=== PATIENT | female | born 1965 | race Caucasian/White ===

== ENCOUNTER 2023-05-05 09:35 | Day surgery (SDC) | payer OTHER ==
[2023-05-05] MEDS ORDERED: LIDOCAINE HCL 2% 100 MG/5 ML IJ ONE (09:36)
[2023-05-05] MEDS ORDERED: DIPRIVAN 200 MG/20 ML IV ONE (11:48)
--- NOTE | 2023-05-05 12:33 | XRAY ---
Indication: Bilateral L4-S1 MBB. Intraoperative fluoroscopy provided for 10 seconds. Single digital spot image submitted for interpretation demonstrates posterior needle tips projecting over expected left and right L4-S1 nerve roots. Correlate with intraoperative findings/report.
--- NOTE | 2023-05-05 13:23 | XRAY ---
10 seconds of fluoroscopy was used in surgery for a bilateral L4-S1 MBB.
[2023-05-05] MEDS ORDERED: Lactated Ringers 1,000 ML IV ONE (13:41)
== END 2023-05-05 12:20 | disposition home or self-care (01) ==
LOC: SDC-PAIN 09:35
PROVIDERS: ATTEND Psychiatry & Neurology Pain Medicine
DX: M47.816 Spondylosis without myelopathy or radiculopathy, lumbar region (principal); E11.9 Type 2 diabetes mellitus without complications
CPT/HCPCS: 64493; 64494; 72020; 77002; 82947; J2704

== ENCOUNTER 2023-06-09 07:20 | Day surgery (SDC) | payer OTHER ==
[2023-06-09] MEDS ORDERED: BUPIVACAINE 0.5% VIAL IJ ONE (07:21)
[2023-06-09] MEDS ORDERED: DIPRIVAN 200 MG/20 ML IV ONE (09:34)
--- NOTE | 2023-06-09 10:41 | XRAY ---
Indication: Bilateral L4-S1 MBB. Intraoperative fluoroscopy provided for 12 seconds. Single digital spot image submitted for interpretation demonstrates posterior needle tips projecting over expected left and right L4-S1 nerve roots. Correlate with intraoperative findings/report.
[2023-06-09] MEDS ORDERED: Lactated Ringers 1,000 ML IV ONE (11:27)
--- NOTE | 2023-06-10 13:54 | XRAY ---
12 seconds of fluoroscopy was used in surgery for a bilateral L4-S1 MBB.
== END 2023-06-09 10:02 | disposition home or self-care (01) ==
LOC: SDC-PAIN 07:20
PROVIDERS: ATTEND Psychiatry & Neurology Pain Medicine
DX: M47.816 Spondylosis without myelopathy or radiculopathy, lumbar region (principal); E11.9 Type 2 diabetes mellitus without complications
CPT/HCPCS: 64493; 64494; 72020; 77002; 82947; J2704

== ENCOUNTER 2023-07-14 07:21 | Day surgery (SDC) | payer OTHER ==
[2023-07-14] MEDS ORDERED: BUPIVACAINE 0.5% VIAL IJ ONE (07:22)
[2023-07-14] MEDS ORDERED: LIDOCAINE HCL 1% 50 MG/5 ML VL PF IJ ONE (07:22)
[2023-07-14] MEDS ORDERED: Depo-Medrol 40 MG/ML IM ONE (07:22)
[2023-07-14] MEDS ORDERED: DIPRIVAN 200 MG/20 ML IV ONE (08:59)
--- NOTE | 2023-07-14 10:59 | XRAY ---
Indication: Left L4-S1 RFA. Intraoperative fluoroscopy provided for 38 seconds. 3 digital spot image submitted for interpretation demonstrates posterior needle tips projecting over the expected left L4-S1 nerve roots. Correlate with intraoperative findings/report.
--- NOTE | 2023-07-14 11:28 | XRAY ---
38 seconds of fluoroscopy was used in surgery for a left L4-S1 RFA.
[2023-07-14] MEDS ORDERED: Lactated Ringers 1,000 ML IV ONE (11:46)
== END 2023-07-14 09:35 | disposition home or self-care (01) ==
LOC: SDC-PAIN 07:21
PROVIDERS: ATTEND Psychiatry & Neurology Pain Medicine
DX: M47.817 Spondylosis without myelopathy or radiculopathy, lumbosacral region (principal); E11.9 Type 2 diabetes mellitus without complications
CPT/HCPCS: 64635; 64636; 72100; 77002; 82947; J1010; J2001; J2704

== ENCOUNTER 2023-10-06 07:23 | Day surgery (SDC) | payer OTHER ==
[2023-10-06] MEDS ORDERED: BUPIVACAINE 0.5% VIAL IJ ONE (07:24)
[2023-10-06] MEDS ORDERED: Depo-Medrol 40 MG/ML IM ONE (07:24)
[2023-10-06] MEDS ORDERED: DIPRIVAN 200 MG/20 ML IV ONE (08:28)
[2023-10-06] MEDS ORDERED: Lactated Ringers 1,000 ML IV ONE (09:30)
--- NOTE | 2023-10-06 10:30 | XRAY ---
Indication: Bilateral hip and bilateral greater trochanter bursa injection. Intraoperative fluoroscopy was provided for 43 seconds. 4 digital spot image submitted for interpretation demonstrates needle tip projecting lateral to left/right femur necks and left/right greater trochanters. Small amount of contrast injected for needle tip placement. Correlate with intraoperative findings/report.
--- NOTE | 2023-10-06 12:27 | XRAY ---
43 seconds of fluoroscopy was used in surgery for bilateral greater trochanteric bursa and intra-articular injections of the hips.
== END 2023-10-06 09:05 | disposition home or self-care (01) ==
LOC: SDC-PAIN 07:23
PROVIDERS: ATTEND Psychiatry & Neurology Pain Medicine
DX: M16.0 Bilateral primary osteoarthritis of hip (principal); E11.9 Type 2 diabetes mellitus without complications; M70.62 Trochanteric bursitis, left hip; M70.61 Trochanteric bursitis, right hip
CPT/HCPCS: 20610; 73522; 77002; 82947; J2704; Q9966

== ENCOUNTER 2024-01-12 07:44 | Day surgery (SDC) | payer OTHER ==
[2024-01-12] MEDS ORDERED: LIDOCAINE HCL 1% AMPUL 5 ML IJ ONE (07:45)
[2024-01-12] MEDS ORDERED: BUPIVACAINE 0.5% VIAL IJ ONE (07:45)
[2024-01-12] MEDS ORDERED: Depo-Medrol 40 MG/ML IM ONE (07:45)
[2024-01-12] MEDS ORDERED: Sodium Chloride 0.9% 500 ML 500 ML IV ONE (09:27)
[2024-01-12] MEDS ORDERED: DIPRIVAN 200 MG/20 ML IV ONE ×2 (10:23→10:34)
--- NOTE | 2024-01-12 19:02 | XRAY ---
Indication: Bilateral hip and greater trochanter bursa injection. Intraoperative fluoroscopy provided for 42 seconds. 5 digital spot image submitted for interpretation demonstrates needle tips projecting lateral to left/right femur necks and greater trochanters. Small amount of contrast injected for all needle tip placement. Correlate with intraoperative findings/report.
--- NOTE | 2024-01-12 19:23 | XRAY ---
42 seconds of fluoroscopy was used in surgery for a bilateral intra-articular hip and greater trochanteric bursa injection.
== END 2024-01-12 10:56 | disposition home or self-care (01) ==
LOC: SDC-PAIN 07:44
PROVIDERS: ATTEND Psychiatry & Neurology Pain Medicine
DX: M16.0 Bilateral primary osteoarthritis of hip (principal); E11.9 Type 2 diabetes mellitus without complications
CPT/HCPCS: 20610; 73522; 77002; 82947; J2704; Q9966

== ENCOUNTER 2024-12-21 06:57 | Day surgery (SDC) | payer OTHER ==
[2024-12-21] MEDS ORDERED: BUPIVACAINE 0.5% VIAL IJ ONE (06:58)
[2024-12-21] MEDS ORDERED: methylPREDNISolone acetate IM ONE (06:58)
[2024-12-21] MEDS ORDERED: propofoL IV ONE (08:34)
[2024-12-21] MEDS ORDERED: Lactated Ringers 1,000 ML IV ONE (09:54)
--- NOTE | 2024-12-21 10:16 | XRAY ---
Indication: Right ankle injection. Intraoperative fluoroscopy provided for 14 seconds. Single frontal digital spot image submitted for interpretation demonstrates needle tip projecting over right talotibial articulation. Small amount of contrast injected for needle tip placement. Correlate with intraoperative findings/report.
--- NOTE | 2024-12-21 12:08 | XRAY ---
14 seconds of fluoroscopy was used in surgery for a right intra-articular ankle injection.
== END 2024-12-21 09:10 | disposition home or self-care (01) ==
LOC: SDC-PAIN 06:57
PROVIDERS: ATTEND Psychiatry & Neurology Pain Medicine
DX: M19.071 Primary osteoarthritis, right ankle and foot (principal); E11.9 Type 2 diabetes mellitus without complications